=== PATIENT | female | born 1990 | race African-American/Black ===

== ENCOUNTER 2017-08-07 01:48 | Emergency (ER) | payer MEDICAID, OTHER ==
[~2017-08-07] VITALS: Ht 160 cm; Wt 73.0 kg
[2017-08-07 01:50] VITALS: BP 114/90
== END 2017-08-07 02:15 | disposition left against medical advice (07) ==
LOC: ER 01:48
DX: R10.30 Lower abdominal pain, unspecified (principal); Z53.21 Procedure and treatment not carried out due to patient leaving prior to being seen by health care provider